=== PATIENT | male | born 1950 | race Caucasian/White ===

== ENCOUNTER 2023-10-04 10:50 | Observation (INO) | payer MEDICARE, BC ==
--- NOTE | 2023-10-04 11:18 | ED ---
General Adult HPI - General Chief complaint: Arrhythmia/Palpitations Stated complaint: Arrhythmia Time Seen by Provider: 10/04/23 11:01 Source: patient, RN notes reviewed, old records reviewed Mode of arrival: ambulatory Limitations: no limitations - History of Present Illness Initial comments: 72-year-old male with an episode of palpitations and near syncope. Patient was driving, felt palpitations followed by the sensation that he may pass out. He states he's had palpitations in the past and has worn a monitor. He has no diagnosis of arrhythmia. He states he has history of coronary artery disease and type 2 diabetes. He denies vomiting or diaphoresis. Denies dehydration. Denies fever. Symptoms are resolved at this time. 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 - Related Data Home Medications Medication Instructions Recorded Confirmed Adalimumab-Atto [Amjevita(Cf) 40 mg SQ Q14D 10/04/23 10/04/23 Autoinjector] Aspirin EC [Ecotrin Low Dose] 81 mg PO DAILY 10/04/23 10/04/23 Atorvastatin [Lipitor] 20 mg PO HS 10/04/23 10/04/23 Clotrimazole/Betameth Cream 1 applic TOPICAL BID PRN 10/04/23 10/04/23 [Lotrisone] Empagliflozin [Jardiance] 25 mg PO DAILY 10/04/23 10/04/23 Famotidine [Pepcid] 20 mg PO BID 10/04/23 10/04/23 Folic Acid 1 mg PO DAILY 10/04/23 10/04/23 Insulin Glargine,Hum.rec.anlog 35 units SQ DAILY 10/04/23 10/04/23 [Lantus Solostar Pen] Isosorbide Mononitrate ER [Imdur] 30 mg PO HS 10/04/23 10/04/23 Metoprolol Succinate (ER) [Toprol 50 mg PO HS 10/04/23 10/04/23 Xl] Sodium Bicarbonate Tab 1,300 mg PO BID 10/04/23 10/04/23 dilTIAZem HCL [dilTIAZem HCL 12Hr 60 mg PO BID 10/04/23 10/04/23 ER] lisinopriL [Prinivil] 20 mg PO HS 10/04/23 10/04/23 metFORMIN HCL ER [Glucophage XR] 100 mg PO BID 10/04/23 10/04/23 predniSONE 10 mg PO DAILY PRN 10/04/23 10/04/23 Allergies Allergy/AdvReac Type Severity Reaction Status Date / Time citalopram AdvReac Unknown Verified 10/04/23 13:36 codeine AdvReac Nausea & Verified 10/04/23 13:36 Vomiting hydrocodone AdvReac Nausea & Verified 10/04/23 13:36 Vomiting oxybutynin AdvReac Unknown Verified 10/04/23 13:36 sulfasalazine AdvReac Nausea & Verified 10/04/23 13:36 Vomiting tamsulosin AdvReac Unknown Verified 10/04/23 13:36 Review of Systems ROS Statement: Those systems with pertinent positive or pertinent negative responses have been documented in the HPI. ROS Other: All systems not noted in ROS Statement are negative. Past Medical History Past Medical History: Diabetes Mellitus, Rheumatoid Arthritis (RA) Additional Past Medical History / Comment(s): Heart Disease, Past Surgical History: Heart Catheterization Additional Past Surgical History / Comment(s): Arthrectomy of Coronary artery in 1994, Past Psychological History: No Psychological Hx Reported Smoking Status: Former smoker Past Alcohol Use History: Occasional Past Drug Use History: None Reported General Exam Limitations: no limitations General appearance: alert, in no apparent distress Head exam: Present: atraumatic, normocephalic Eye exam: Present: normal appearance, PERRL ENT exam: Present: normal exam Neck exam: Present: normal inspection. Absent: tenderness, meningismus Respiratory exam: Present: normal lung sounds bilaterally. Absent: respiratory distress, wheezes Cardiovascular Exam: Present: regular rate, normal rhythm GI/Abdominal exam: Present: soft. Absent: distended, tenderness, guarding Extremities exam: Present: normal inspection, normal capillary refill. Absent: pedal edema, calf tenderness Neurological exam: Present: alert, oriented X3 Psychiatric exam: Present: normal affect, normal mood Skin exam: Present: warm, dry, intact. Absent: cyanosis, diaphoretic Course Vital Signs 10/04/23 10/04/23 10/04/23 10:52 12:00 13:00 Temperature 98.0 F Pulse Rate 77 64 62 Respiratory 18 16 18 Rate Blood Pressure 164/67 135/68 134/64 O2 Sat by Pulse 99 99 99 Oximetry Medical Decision Making - Medical Decision Making Was pt. sent in by a medical professional or institution ([facility], DIRECT[employer]IDATION, urgent care, hospital, or jail...) When possible be specific @ -No Did you speak to anyone other than the patient for history (EMS, parent, family, police, friend...)? What history was obtained from this source @ -No Did you review nursing and triage notes (agree or disagree)? Why? @ -I reviewed and agree with nursing and triage notes Were old charts reviewed (outside hosp., previous admission, EMS record, old EKG, old radiological studies, urgent care reports/EKG's, jail records)? Report findings @ -No old charts were reviewed Differential Diagnosis (chest pain, altered mental status, abdominal pain women, abdominal pain men, vaginal bleeding, weakness, fever, dyspnea, syncope, headache, dizziness, GI bleed, back pain, seizure, CVA, palpatations, mental health, musculoskeletal)? @ -Differential Syncope: Valvular disease, hypertrophic cardiomyopathy, pulmonary embolism, tamponade, tachycardia, bradycardia, MD, hypovolemia, hemorrhage, dissection, anemia, intracranial hemorrhage, seizure, hypoglycemia, carbon monoxide poisoning, this is not meant to be an all-inclusive list. EKG interpreted by me (3pts min.). @ -[Sinus rhythm rate of 67, AR interval 161, QRS duration 88, QTC 398, no ST segment elevation. X-rays interpreted by me (1pt min.). @ -None done CT interpreted by me (1pt min.). @ -None done U/S interpreted by me (1pt. min.). @ -None done What testing was considered but not performed or refused? (CT, X-rays, U/S, labs)? Why? @ -None What meds were considered but not given or refused? Why? @ -None Did you discuss the management of the patient with other professionals (professionals i.e. [facility] Castorena, [employer], lab, RT, psych nurse, social work associate, braiding operator, teacher, principal gifts officer, case coordinator)? Give summary @ EM Was smoking cessation discussed for >3mins.? @ -No Was critical care preformed (if so, how long)? @ -No Were there social determinants of health that impacted care today? How? (Homelessness, low income, unemployed, alcoholism, drug addiction, transportation, low edu. Level, literacy, decrease access to med. care, intermediate, rehab)? @ -No Was there de-escalation of care discussed even if they declined (Discuss DNR or withdrawal of care, Hospice)? DNR status @ -No What co-morbidities impacted this encounter? (DM, HTN, Smoking, COPD, CAD, Cancer, CVA, ARF, Chemo, Hep., AIDS, mental health diagnosis, sleep apnea, morbid obesity)? @ -[Diabetes, coronary artery disease, Was patient admitted / discharged? Hospital course, mention meds given and rou te, prescriptions, significant lab abnormalities, going to OR and other pertinent info. @ -72-year-old male with chief complaint of palpitations and near syncope. Patient is in sinus rhythm. He has mild hyperkalemia 5.7. He is given IV fluid in this level was repeated. His 5.9. His non-hemolyzed. He will be admitted for 24 hours a telemetry, Kayexalate, IV fluids, close monitoring. Troponin is negative 2. Undiagnosed new problem with uncertain prognosis? @ -No Drug Therapy requiring intensive monitoring for toxicity (Heparin, Nitro, Insulin, Cardizem)? @ -No Were any procedures done? @ -No Diagnosis/symptom? @ -[Syncope, hyperkalemia Acute, or Chronic, or Acute on Chronic? @ -default Uncomplicated (without systemic symptoms) or Complicated (systemic symptoms)? @ -default Side effects of treatment? @ -No Exacerbation, Progression, or Severe Exacerbation? @ -No Poses a threat to life or bodily function? How? (Chest pain, USA, MD, pneumonia, PE, COPD, DKA, ARF, appy, cholecystitis, CVA, Diverticulitis, Homicidal, Suicidal, threat to staff... and all critical care pts) @ -[Yes, arrhythmia - Lab Data Result diagrams: 10/04/23 11:13 10/04/23 13:28 Lab Results 10/04/23 10/04/23 10/04/23 Range/Units 11:13 11:13 11:13 WBC 9.5 (3.8-10.6) k/uL RBC 4.99 (4.30-5.90) m/uL Hgb 14.0 (13.0-17.5) gm/dL Hct 43.0 (39.0-53.0) % MCV 86.1 (80.0-100.0) fL MCH 28.1 (25.0-35.0) pg MCHC 32.6 (31.0-37.0) g/dL RDW 13.6 (11.5-15.5) % Plt Count 198 (150-450) k/uL MPV 7.8 Neutrophils % 58 % Lymphocytes % 32 % Monocytes % 6 % Eosinophils % 2 % Basophils % 1 % Neutrophils # 5.5 (1.3-7.7) k/uL Lymphocytes # 3.1 (1.0-4.8) k/uL Monocytes # 0.6 (0-1.0) k/uL Eosinophils # 0.2 (0-0.7) k/uL Basophils # 0.0 (0-0.2) k/uL PT 10.4 (10.0-12.5) sec INR 0.9 (<1.2) APTT 21.7 L (22.0-30.0) sec Sodium 138 (137-145) mmol/L Potassium 5.7 H (3.5-5.1) mmol/L Chloride 107 (98-107) mmol/L Carbon Dioxide 20 L (22-30) mmol/L Anion Gap 11 mmol/L BUN 28 H (9-20) mg/dL Creatinine 1.23 (0.66-1.25) mg/dL Est GFR (CKD-EPI)AfAm 68 (>60 ml/min/1.73 sqM) Est GFR (CKD-EPI)NonAf 59 (>60 ml/min/1.73 sqM) Glucose 118 H (74-99) mg/dL Calcium 9.5 (8.4-10.2) mg/dL Magnesium 2.1 (1.6-2.3) mg/dL Total Bilirubin 0.6 (0.2-1.3) mg/dL AST 41 (17-59) U/L ALT 51 H (4-49) U/L Alkaline Phosphatase 65 (38-126) U/L Troponin I (0.000-0.034) ng/mL Total Protein 7.4 (6.3-8.2) g/dL Albumin 4.2 (3.5-5.0) g/dL 10/04/23 10/04/23 10/04/23 Range/Units 11:13 13:28 13:28 WBC (3.8-10.6) k/uL RBC (4.30-5.90) m/uL Hgb (13.0-17.5) gm/dL Hct (39.0-53.0) % MCV (80.0-100.0) fL MCH (25.0-35.0) pg MCHC (31.0-37.0) g/dL RDW (11.5-15.5) % Plt Count (150-450) k/uL MPV Neutrophils % % Lymphocytes % % Monocytes % % Eosinophils % % Basophils % % Neutrophils # (1.3-7.7) k/uL Lymphocytes # (1.0-4.8) k/uL Monocytes # (0-1.0) k/uL Eosinophils # (0-0.7) k/uL Basophils # (0-0.2) k/uL PT (10.0-12.5) sec INR (<1.2) APTT (22.0-30.0) sec Sodium 137 (137-145) mmol/L Potassium 5.9 H (3.5-5.1) mmol/L Chloride 107 (98-107) mmol/L Carbon Dioxide 21 L (22-30) mmol/L Anion Gap 9 mmol/L BUN 28 H (9-20) mg/dL Creatinine 1.14 (0.66-1.25) mg/dL Est GFR (CKD-EPI)AfAm 75 (>60 ml/min/1.73 sqM) Est GFR (CKD-EPI)NonAf 65 (>60 ml/min/1.73 sqM) Glucose 93 (74-99) mg/dL Calcium 9.0 (8.4-10.2) mg/dL Magnesium (1.6-2.3) mg/dL Total Bilirubin (0.2-1.3) mg/dL AST (17-59) U/L ALT (4-49) U/L Alkaline Phosphatase (38-126) U/L Troponin I <0.012 <0.012 (0.000-0.034) ng/mL Total Protein (6.3-8.2) g/dL Albumin (3.5-5.0) g/dL Disposition Clinical Impression: Near syncope, Hyperkalemia Disposition: ADMITTED IP TO THIS HOSP Condition: Stable Is patient prescribed a controlled substance at d/c from ED?: No Referrals: Na Fan MD [Primary Care Provider] - 1-2 days Time of Disposition: 14:48
--- NOTE | 2023-10-04 11:30 | XR ---
EXAMINATION TYPE: XR chest 2V DATE OF EXAM: 10/04/2023 COMPARISON: None INDICATION: Dysrhythmia TECHNIQUE: Frontal and lateral views of the chest are obtained. FINDINGS: The heart size is normal. The pulmonary vasculature is normal. The lungs are clear. IMPRESSION: 1. No acute pulmonary process.
[2023-10-04 11:38] LABS: Basophils % (A) 1 %; Eosinophils # (A) 0.2 k/uL (0-0.7); Eosinophils % (A) 2 %; Lymphocytes # (A) 3.1 k/uL (1.0-4.8); Lymphocytes % (A) 32 %; MCH 28.1 pg (25.0-35.0); MCHC 32.6 g/dL (31.0-37.0); MCV 86.1 fL (80.0-100.0); Mean Platelet Volume 7.8; Monocytes # (A) 0.6 k/uL (0-1.0); Monocytes % (A) 6 %; Neutrophils # (A) 5.5 k/uL (1.3-7.7); Neutrophils % (A) 58 %; Platelet Count 198 k/uL (150-450); RBC 4.99 m/uL (4.30-5.90); RDW 13.6 % (11.5-15.5); WBC 9.5 k/uL (3.8-10.6)
[2023-10-04 11:43] LABS: ALT 51 U/L (4-49); AST 41 U/L (17-59); African American GFR (CKD) 68 (>60 ml/min/1.73 sqM); Albumin 4.2 g/dL (3.5-5.0); Alkaline Phosphatase 65 U/L (38-126); Anion Gap 11 mmol/L; Blood Urea Nitrogen 28 mg/dL (9-20); Calcium 9.5 mg/dL (8.4-10.2); Carbon Dioxide 20 mmol/L (22-30); Chloride 107 mmol/L (98-107); Glucose 118 mg/dL (74-99); Magnesium 2.1 mg/dL (1.6-2.3); Non-African American GFR(CKD) 59 (>60 ml/min/1.73 sqM); Potassium 5.7 mmol/L (3.5-5.1); Sodium 138 mmol/L (137-145); Total Bilirubin 0.6 mg/dL (0.2-1.3); Total Protein 7.4 g/dL (6.3-8.2)
[2023-10-04 11:52] LABS: INR 0.9 (<1.2); Prothrombin Time 10.4 sec (10.0-12.5)
[2023-10-04 11:56] LABS: Partial Thromboplastin Time 21.7 sec (22.0-30.0)
[2023-10-04] MEDS ORDERED: SODIUM CHLORIDE 0.9% 500 ML 500 ML IV ONE (12:46)
[2023-10-04 13:58] LABS: African American GFR (CKD) 75 (>60 ml/min/1.73 sqM); Anion Gap 9 mmol/L; Blood Urea Nitrogen 28 mg/dL (9-20); Carbon Dioxide 21 mmol/L (22-30); Chloride 107 mmol/L (98-107); Glucose 93 mg/dL (74-99); Non-African American GFR(CKD) 65 (>60 ml/min/1.73 sqM); Potassium 5.9 mmol/L (3.5-5.1); Sodium 137 mmol/L (137-145)
[2023-10-04] MEDS ORDERED: SODIUM POLYSTYRENE SULFONATE 15 GM/60 ML BOTTLE PO STA (14:41)
[2023-10-04] MEDS ORDERED: NALOXONE 0.4 MG/ML 1 ML VIAL IV PRN (14:42)
[2023-10-04] MEDS ORDERED: ACETAMINOPHEN TAB 325 MG TAB PO PRN (14:42)
[2023-10-04] MEDS: SODIUM CHLORIDE 0.9% 1,000 ML IV SCH (15:02)
[2023-10-04] MEDS ORDERED: SODIUM ZIRCONIUM CYCLOSILICATE 10 GM PACKET PO ONE (20:30)
[2023-10-04] MEDS ORDERED: CLOTRIMAZOLE/BETAMETH 1-0.05% CREAM 45 GM TUBE TOPICAL PRN (20:31)
[2023-10-04] MEDS ORDERED: DEXTROSE 50% SYRINGE 50 ML IVP PRN ×2 (20:33)
[2023-10-04] MEDS ORDERED: METOPROLOL SUCCINATE (ER) 50 MG TAB.ER.24H PO SCH (21:00)
[2023-10-04] MEDS ORDERED: ATORVASTATIN 20 MG TAB PO SCH (21:00)
[2023-10-04] MEDS ORDERED: ISOSORBIDE MONONITRATE ER 30 MG TAB.ER.24H PO SCH (21:00)
[2023-10-04 21:04] LABS: Glucose,Whole Blood 97 mg/dL (70-110)
[2023-10-04] MEDS: INSULIN ASPART (NovoLOG) 100 UNIT/ML VIAL SQ SCH (21:21)
[2023-10-04] MEDS: DILTIAZEM ORAL 60 MG TAB PO SCH (21:57)
[2023-10-04] MEDS: FAMOTIDINE 20 MG TAB PO SCH (22:16)
[2023-10-04] MEDS: SODIUM BICARBONATE TAB 650 MG TAB PO SCH (22:16)
[2023-10-05 03:20] VITALS: TEMP 98.3
[2023-10-05 06:23] LABS: Glucose,Whole Blood 91 mg/dL (70-110)
[2023-10-05] MEDS: SODIUM CHLORIDE 0.9% 1,000 ML IV SCH (06:38)
[2023-10-05] MEDS: INSULIN ASPART (NovoLOG) 100 UNIT/ML VIAL SQ SCH ×2 (06:38→12:33)
[2023-10-05] MEDS: FAMOTIDINE 20 MG TAB PO SCH (08:51)
[2023-10-05] MEDS ORDERED: INSULIN DETEMIR (LEVEMIR) 100 UNIT/ML SYR SQ SCH (09:00)
[2023-10-05] MEDS ORDERED: ASPIRIN 81 MG PO SCH (09:00)
[2023-10-05] MEDS ORDERED: DAPAGLIFLOZIN PROPANEDIOL 10 MG TABLET PO SCH (09:00)
[2023-10-05] MEDS ORDERED: FOLIC ACID 1 MG TAB PO SCH (09:00)
--- NOTE | 2023-10-05 10:15 | P.CRDCN ---
History of Present Illness Consult date: 10/05/23 Requesting physician: Anthony Bundy Reason for Consult (text): near syncope, heart palpitations Chief complaint: skipped heart beat, dizziness, near syncope History of present illness: A pleasant 72-year-old gentleman who has a prior history of CAD with prior arthrectomy involving the RCA done at [facility] in [address] Snider. He also has a history of hypertension, hyperlipidemia and diabetes as well as remote history of smoking. According to the patient is most recent cardiac catheterization was in 2019 and showed no obstructive CAD. He does not follow regularly with the cardiologists since moving from [place]. He presented to the emergency department after developing what he described as a skipped heartbeat followed by a sudden dizzy sensation and nearly passing out. He was driving at the time of his episode. EKG on admission showed sinus mechanism with no evidence of ischemia. Chest x-ray showed no acute pulmonary process. He's been monitored on telemetry with no evidence of malignant arrhythmia. Labs showed a normal CBC. Potassium 5.7 and subsequent potassium 5.9, BUN 28 with a creatinine of 1.263 and subsequent of 1.14. Cardiac enzymes have been negative 2. Vital signs have been stable with blood pressure being somewhat on the high side. Current medications at home include folic acid, Pepcid, low-dose aspirin, metformin, sodium bicarbonate, lisinopril 20 mg by mouth daily, isosorbide 30 mg by mouth daily, Lantus, atorvastatin 20 mg by mouth daily, Amjevita, metoprolol succinate 50 mg by mouth daily, Jardiance 5 mg by mouth daily, diltiazem 60 mg by mouth twice a day, and prednisone. He's had no episodes of chest discomfort. Denies any shortness of breath, orthopnea or PND. He has no lower extremity edema. He does not typically have episodes of dizziness. He's been having palpitations for many years without any malignant arrhythmia noted on previous Holter monitors. Past Medical History Past Medical History: Diabetes Mellitus, Rheumatoid Arthritis (RA) Additional Past Medical History / Comment(s): Heart Disease, History of Any Multi-Drug Resistant Organisms: None Reported Past Surgical History: Heart Catheterization Additional Past Surgical History / Comment(s): Arthrectomy of Coronary artery in 1994, Past Anesthesia/Blood Transfusion Reactions: No Reported Reaction Past Psychological History: No Psychological Hx Reported Smoking Status: Former smoker Past Alcohol Use History: Occasional Past Drug Use History: None Reported Medications and Allergies Home Medications Medication Instructions Recorded Confirmed Type Adalimumab-Atto [Amjevita(Cf) 40 mg SQ Q14D 10/04/23 10/04/23 History Autoinjector] Aspirin EC [Ecotrin Low Dose] 81 mg PO DAILY 10/04/23 10/04/23 History Atorvastatin [Lipitor] 20 mg PO HS 10/04/23 10/04/23 History Clotrimazole/Betameth Cream 1 applic TOPICAL BID PRN 10/04/23 10/04/23 History [Lotrisone] Empagliflozin [Jardiance] 25 mg PO DAILY 10/04/23 10/04/23 History Famotidine [Pepcid] 20 mg PO BID 10/04/23 10/04/23 History Folic Acid 1 mg PO DAILY 10/04/23 10/04/23 History Insulin Glargine,Hum.rec.anlog 35 units SQ DAILY 10/04/23 10/04/23 History [Lantus Solostar Pen] Isosorbide Mononitrate ER [Imdur] 30 mg PO HS 10/04/23 10/04/23 History Metoprolol Succinate (ER) [Toprol 50 mg PO HS 10/04/23 10/04/23 History Xl] Sodium Bicarbonate Tab 1,300 mg PO BID 10/04/23 10/04/23 History dilTIAZem HCL [dilTIAZem HCL 12Hr 60 mg PO BID 10/04/23 10/04/23 History ER] lisinopriL [Prinivil] 20 mg PO HS 10/04/23 10/04/23 History metFORMIN HCL ER [Glucophage XR] 100 mg PO BID 10/04/23 10/04/23 History predniSONE 10 mg PO DAILY PRN 10/04/23 10/04/23 History Allergies Allergy/AdvReac Type Severity Reaction Status Date / Time citalopram AdvReac Unknown Verified 10/04/23 13:36 codeine AdvReac Nausea & Verified 10/04/23 13:36 Vomiting hydrocodone AdvReac Nausea & Verified 10/04/23 13:36 Vomiting oxybutynin AdvReac Unknown Verified 10/04/23 13:36 sulfasalazine AdvReac Nausea & Verified 10/04/23 13:36 Vomiting tamsulosin AdvReac Unknown Verified 10/04/23 13:36 Physical Exam Vitals: Vital Signs Temp Pulse Pulse Resp BP BP Pulse Ox 10/05/23 07:00 98.3 F 59 L 12 147/67 98 10/05/23 02:37 98.3 F 61 16 147/68 98 10/04/23 21:59 72 10/04/23 20:56 98.4 F 72 16 170/64 98 10/04/23 20:21 73 19 134/65 10/04/23 15:00 97.4 F L 60 16 132/65 100 10/04/23 13:00 62 18 134/64 99 10/04/23 12:00 64 16 135/68 99 10/04/23 10:52 98.0 F 77 18 164/67 99 Intake and Output 10/04/23 10/05/23 10/05/23 22:59 06:59 14:59 Other: Voiding Method Toilet # Voids 1 2 Weight 68.039 kg PHYSICAL EXAMINATION: This is a 72-year-old gentleman in no apparent distress at the time of my examination. VITAL SIGNS: Reviewed HEENT: Head is atraumatic, normocephalic. Pupils are equal, round. Sclerae anicteric. Conjunctivae are clear. Mucous membranes of the mouth are moist. Neck is supple. There is no elevated jugular venous pressure. No carotid bruit is heard. CHEST EXAMINATION: Clear to auscultation bilaterally. No wheezes rales or rhonchi. Respirations even and nonlabored. HEART EXAMINATION: Heart regular, positive S1 and S2. No S3. No S4. No clicks, rubs or murmurs. ABDOMEN: Soft, nontender. Bowel sounds are heard. No organomegaly noted. EXTREMITIES: 2+ peripheral pulses with no evidence of peripheral edema and no calf tenderness noted. NEUROLOGIC EXAMINATION: Patient is awake, alert and oriented x3. Results 10/04/23 11:13 10/04/23 13:28 Cardiac Enzymes 10/04/23 10/04/23 10/04/23 Range/Units 11:13 11: 13:28 AST 41 (17-59) U/L Troponin I <0.012 <0.012 (0.000-0.034) ng/mL Coagulation 10/04/23 Range/Units 11:13 PT 10.4 (10.0-12.5) sec APTT 21.7 L (22.0-30.0) sec CBC 10/04/23 Range/Units 11:13 WBC 9.5 (3.8-10.6) k/uL RBC 4.99 (4.30-5.90) m/uL Hgb 14.0 (13.0-17.5) gm/dL Hct 43.0 (39.0-53.0) % Plt Count 198 (150-450) k/uL Comprehensive Metabolic Panel 10/04/23 10/04/23 Range/Units 11:13 13:28 Sodium 138 137 (137-145) mmol/L Potassium 5.7 H 5.9 H (3.5-5.1) mmol/L Chloride 107 107 (98-107) mmol/L Carbon Dioxide 20 L 21 L (22-30) mmol/L BUN 28 H 28 H (9-20) mg/dL Creatinine 1.23 1.14 (0.66-1.25) mg/dL Glucose 118 H 93 (74-99) mg/dL Calcium 9.5 9.0 (8.4-10.2) mg/dL AST 41 (17-59) U/L ALT 51 H (4-49) U/L Alkaline Phosphatase 65 (38-126) U/L Total Protein 7.4 (6.3-8.2) g/dL Albumin 4.2 (3.5-5.0) g/dL Current Medications Generic Name Dose Route Start Last Admin Trade Name Freq PRN Reason Stop Dose Admin Acetaminophen 650 mg 10/04/23 14:42 Acetaminophen Tab 325 Mg Tab PO Q6HR PRN Mild Pain or Fever > 100.5 Aspirin 81 mg 10/05/23 09:00 10/05/23 08:51 Aspirin 81 Mg PO 81 mg DAILY JOHANNY Administration Atorvastatin Calcium 20 mg 10/04/23 21:00 10/04/23 21:59 Atorvastatin 20 Mg Tab PO 20 mg HS JOHANNY Administration Betamethasone/Clotrimazole 1 applic 10/04/23 20:31 Clotrimazole/Betameth 1-0.05% Cream 45 Gm Tube TOPICAL BID PRN irritation Protocol Dapagliflozin 10 mg 10/05/23 09:00 10/05/23 08:51 Dapagliflozin Propanediol 10 Mg Tablet PO 10 mg DAILY JOHANNY Administration Dextrose/Water 25 ml 10/04/23 20:33 Dextrose 50% Syringe 50 Ml IVP PER PROTOCOL PRN Hypoglycemia Protocol Dextrose/Water 50 ml 10/04/23 20:33 Dextrose 50% Syringe 50 Ml IVP PER PROTOCOL PRN Hypoglycemia Protocol Diltiazem HCl 60 mg 10/04/23 21:00 10/04/23 21:57 Diltiazem Oral 60 Mg Tab PO Not Given BID JOHANNY Famotidine 20 mg 10/04/23 21:00 10/05/23 08:51 Famotidine 20 Mg Tab PO 20 mg BID JOHANNY Administration Folic Acid 1 mg 10/05/23 09:00 10/05/23 08:51 Folic Acid 1 Mg Tab PO 1 mg DAILY JOHANNY Administration Sodium Chloride 1,000 mls @ 75 mls/hr 10/04/23 14:45 10/05/23 06:38 Saline 0.9% IV Not Given .[id number] [facility] Insulin Aspart 0 unit 10/04/23 21:00 10/05/23 06:38 Insulin Aspart (Novolog) 100 Unit/Ml Vial SQ Not Given ACHS JOHANNY Protocol Insulin Detemir 35 unit 10/05/23 09:00 10/05/23 08:51 Insulin Detemir (Levemir) 100 Unit/Ml Syr SQ 35 unit DAILY JOHANNY Administration Isosorbide Mononitrate 30 mg 10/04/23 21:00 10/04/23 22:16 Isosorbide Mononitrate Er 30 Mg Tab.Er.24h PO Not Given HS JOHANNY Metoprolol Succinate 50 mg 10/04/23 21:00 10/04/23 21:59 Metoprolol Succinate (Er) 50 Mg Tab.Er.24h PO 50 mg HS [facility] Administration Naloxone HCl 0.2 mg 10/04/23 14:42 Naloxone 0.4 Mg/Ml 1 Ml Vial IV Q2M PRN Opioid Reversal Sodium Bicarbonate 1,300 mg 10/04/23 21:00 10/04/23 22:16 Sodium Bicarbonate Tab 650 Mg Tab PO Not Given BID JOHANNY Intake and Output 10/04/23 10/05/23 10/05/23 22:59 06:59 14:59 Other: Voiding Method Toilet # Voids 1 2 Weight 68.039 kg 10/04/23 11:13 11/06/23 13:28 EKG Interpretations (text) Normal sinus rhythm Assessment and Plan Assessment: #1 symptoms of near syncope #2 CAD with prior arthrectomy #3 hypertension #4 hyperlipidemia #5 palpitations, recurrent #6 diabetes mellitus type 2 Plan: From cardiology perspective will obtain a 2-D echo with Doppler study to assess cardiac structure and function. We will obtain a stress echocardiogram to rule out exercise-induced arrhythmia as well as underlying ischemia. Continue to monitor on telemetry. Depending on the test results further recommendations will be made. Patient will likely benefit from an outpatient 30 day event monitor which will be scheduled through our office. May discuss possible loop implantation in the future if need be. MYSQL DBA note has been reviewed, I agree with a documented findings and plan of care. Patient was seen and examined.
[2023-10-05 11:31] LABS: BUN/Creat Ratio 20.17 Ratio (12.00-20.00); Blood Urea Nitrogen 24.2 mg/dL (9.0-27.0); Carbon Dioxide 20.9 mmol/L (21.6-31.8); Chloride 109 mmol/L (96-109); Glucose 82 mg/dL (70-110); Potassium 4.1 mmol/L (3.5-5.5); Sodium 141 mmol/L (135-145)
[2023-10-05 12:17] LABS: Glucose,Whole Blood 79 mg/dL (70-110)
--- NOTE | 2023-10-05 12:37 | CA ---
Stress Echo Report Stephen Odom Age: 72 Gender: M : 1950 Exam Date: 10/05/2023 11:32 Exam Location: [facility] Ht (in): 65 Wt (lb): 150 Ordering Physician: Rosa Moses Referring Physician: [id number] Ethernet Network Architect: Lauren Denise RDCS Technologist Procedure CPT: Indication: near syncope, h/o CAD ICD-9 Codes: Rhythm: Patient History: PALPITATIONS, ANGINA, HTN, ELEVATED CHOLESTEROL LEVELS, PRIOR SMOKER, PRIOR CARDIAC CATH Cardiac Medications: Medications in past 24 hours: Contrast: Stress Results Protocol: Tod Total dose(mL): Exercise Duration (min:sec): 8:[address] Depression (mm): Angina Score: Orr Score: METS: 9.7 Resting HR: 86 Resting BP: 141 / 44 Peak HR: 137 Peak BP: 220 / 37 Max Predicted HR: 149 92 % Max Predicted HR Target HR: 127 Double Product: [id number] Stress Summary: The patient's target heart rate was achieved The hemodynamic response to exercise was normal BP Response: Reason for Termination: MAX EXERTION/TARGET HR Cardiac Symptoms: NO SYMPTOMS ECG Analysis Resting ECG: Normal sinus rhythm, normal ECG Stress ECG: Borderline ST depression - inferio-lateral leads Arrhythmia: None Echo Analysis Resting Echo: Normal resting echocardiogram. Peak Echo Analysis: Normal wall thickening and motion MEASUREMENTS (Male/Female) Normal Values CONCLUSIONS 1. Good exercise tolerance with borderline positive electrocardiographic stress testing 2. Normal stress echocardiogram with no evidence of stress induced ischemia. Dr. Bruna Alanis MD (Electronically Signed) Final Date: 05 October 2023 12:36
--- NOTE | 2023-10-05 12:39 | CA ---
Transthoracic Echo Report Name: Stephen Odom Age: 72 Gender: M : 1950 Exam Date: 10/05/2023 11:51 Exam Location: [facility] Ht (in): 65 Wt (lb): 150 Ordering Physician: Rosa Moses Attending/Referring Phys: [id number], Aurelia Spot Worker Lauren Denise, LANA Procedure CPT: Indications: near syncope Cardiac Hx: Technical Quality: Good Contrast 1: Total Dose (mL): Contrast 2: Total Dose (mL): MEASUREMENTS (Male / Female) Normal Values 2D ECHO LV Diastolic Diameter PLAX 4.1 cm 4.2 - 5.9 / 3.9 - 5.3 cm LV Systolic Diameter PLAX 2.5 cm IVS Diastolic Thickness 1.0 cm 0.6 - 1.0 / 0.6 - 0.9 cm LVPW Diastolic Thickness 1.0 cm 0.6 - 1.0 / 0.6 - 0.9 cm LV Relative Wall Thickness 0.5 RV Internal Dim ED PLAX 3.6 cm LA Systolic Diameter LX 3.7 cm 3.0 - 4.0 / 2.7 - 3.8 cm LV Diastolic Volume MOD 4C 73.9 cm??? LV Systolic Volume MOD 4C 16.2 cm??? LV Ejection Fraction MOD 4C 78.1 % LV Cardiac Index MOD 4C 2856.9 cm???/min???m??? LV Diastolic Length 4C 8.8 cm LV Systolic Length 4C 6.5 cm LV Diastolic Volume MOD 2C 64.2 cm??? LV Systolic Volume MOD 2C 16.0 cm??? LV Ejection Fraction MOD 2C 75.0 % LV Cardiac Index MOD 2C 2384.8 cm???/min???m??? LV Diastolic Length 2C 7.8 cm LV Systolic Length 2C 6.1 cm LA Volume 47.8 cm??? 18 - 58 / 22 - 52 cm??? LA Volume Index 26.9 cm???/m??? 16 - 28 cm???/m??? M-MODE Aortic Root Diameter MM 3.2 cm MV E Point Septal Separation 0.3 cm AV Cusp Separation MM 2.0 cm DOPPLER AV Peak Velocity 142.2 cm/s AV Peak Gradient 8.1 mmHg MV Area PHT 3.4 cm??? Mitral E Point Velocity 107.9 cm/s Mitral A Point Velocity 104.1 cm/s Mitral E to A Ratio 1.0 MV Deceleration Time 224.0 ms MV E' Velocity 7.4 cm/s Mitral E to MV E' Ratio 14.6 TR Peak Velocity 271.6 cm/s TR Peak Gradient 29.5 mmHg Right Ventricular Systolic Press 34.5 mmHg FINDINGS Left Ventricle Left ventricular ejection fraction is estimated at 60-65 %. Left ventricular cavity size normal. Left ventricular wall thickness normal.normal left ventricular wall motion. Normal left ventricular diastolic filling pattern. Right Ventricle Mild right ventricular dilatation. No pulmonary hypertension. Right Atrium Normal right atrial size. Left Atrium Normal left atrial size. Mitral Valve Structurally normal mitral valve. No mitral stenosis, or prolapse. Trace to mild mitral regurgitation. Aortic Valve Trileaflet aortic valve. No aortic valve stenosis or regurgitation. Tricuspid Valve Structurally normal tricuspid valve. Mild tricuspid regurgitation. Pulmonic Valve Structurally normal pulmonic valve. Trace pulmonic regurgitation. Pericardium No pericardial effusion. Aorta Normal size aortic root and proximal ascending aorta. CONCLUSIONS 1. Normal left ventricular size and systolic function 2. Mild tricuspid with trace to mild mitral regurgitation. Previewed by: Dr. Bruna Alanis MD (Electronically Signed) Final Date: 05 October 2023 12:39
[2023-10-05] MEDS: DILTIAZEM ORAL 60 MG TAB PO SCH (13:47)
[2023-10-05] MEDS: SODIUM BICARBONATE TAB 650 MG TAB PO SCH (13:48)
[2023-10-05 14:24] VITALS: BP 143/55; PULSE 71; RESP 14
--- NOTE | 2023-10-05 22:11 | P.HPIM ---
History of Present Illness H&P Date: 10/05/23 Chief Complaint: Nearly passed out This is a pleasant 72-year-old patient follows with Dr. Na Fan. Patient's previously at the intervention of the RCA with atherectomy with no stent in 1994. In 2019 repeat cardiac catheterization showed mild disease. Patient's had palpitations off and on. Has had previous Holter monitors 3 for several years with no other findings. Patient does have some in a year problems. Also patient has GERD, osteoarthritis, BPH, hypertension, hyperlipidemia. 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 He felt he is going to pass out so therefore pulled over. Decided to come to the ER. The ER symptoms are completely resolved. He had had this morning meals. No chest pain Review of systems: GEN.: None EYES: None HEENT: None NECK: None RESPIRATORY: None CARDIOVASCULAR: As above GASTROINTESTINAL: None GENITOURINARY: None MUSCULOSKELETAL: Arthritis LYMPHATICS: None HEMATOLOGICAL: None PSYCHIATRY: None NEUROLOGICAL: None Past medical history to include: GERD, osteoarthritis, BPH, CAD, hypertension, hyperlipidemia Social history: Patient smoked a pack a day for about 33 years. Stopped 23 years ago. 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 Physical examination: VITAL SIGNS: 98.3, 59, 12, 1 47 x 67, 98% room air GENERAL: BMI 25, declining bed awake comfortable. EYES: Pupils equal. Conjunctiva normal. HEENT: External appearance of nose and ears normal, oral cavity grossly normal. NECK: JVD not raised; masses not palpable. HEART: First and second heart sounds are normal; no edema. LUNGS: Respiratory rate normal; clear to auscultation. ABDOMEN: Soft, nontender, liver spleen not palpable, no masses palpable. PSYCH: Alert and oriented x3; mood and affect normal. MUSCULOSKELETAL:No Clubbing/cyanosis;muscles-grossly intact NEUROLOGICAL: Cranial nerves grossly intact; no facial asymmetry, power and sensation grossly intact. LYMPHATICS: No lymph nodes palpable in the axilla and neck INVESTIGATIONS, reviewed in the clinical context: White count 5.5 hemoglobin 14 platelets 198 sodium 141 potassium 4.1 creatinine 1.2 Troponin I less than 0.0122 EKG tracing personally reviewed by me-normal sinus rhythm Chest x-ray film personally reviewed by me-hyperinflation Assessment plan: -Short episode of palpitation followed by episode of nearly passing out. Patient is at all Holter monitor 3 in the past. Patient will need outpatient event monitor. Rule out underlying cardiac ischemia. -Coronary artery disease with history of atherectomy 1994. Aspirin. Toprol-XL. -GERD Pepcid 20 mg twice a day -Diabetes mellitus type 2 on oral hypoglycemic Metformin thousand milligrams twice a day Lantus 35 units. jardiance -Essential hypertension Cardizem ER. Toprol-XL. Seen by cardiology. Stress echocardiogram ordered. Discussed with patient. Will probably need an event monitor for outpatient. Past Medical History Past Medical History: Diabetes Mellitus, Rheumatoid Arthritis (RA) Additional Past Medical History / Comment(s): Heart Disease, History of Any Multi-Drug Resistant Organisms: None Reported Past Surgical History: Heart Catheterization Additional Past Surgical History / Comment(s): Arthrectomy of Coronary artery in 1994, Past Anesthesia/Blood Transfusion Reactions: No Reported Reaction Past Psychological History: No Psychological Hx Reported Smoking Status: Former smoker Past Alcohol Use History: Occasional Past Drug Use History: None Reported Medications and Allergies Home Medications Medication Instructions Recorded Confirmed Type Adalimumab-Atto [Amjevita(Cf) 40 mg SQ Q14D 10/04/23 10/04/23 History Autoinjector] Aspirin EC [Ecotrin Low Dose] 81 mg PO DAILY 10/04/23 10/04/23 History Atorvastatin [Lipitor] 20 mg PO HS 10/04/23 10/04/23 History Clotrimazole/Betameth Cream 1 applic TOPICAL BID PRN 10/04/23 10/04/23 History [Lotrisone] Empagliflozin [Jardiance] 25 mg PO DAILY 10/04/23 10/04/23 History Famotidine [Pepcid] 20 mg PO BID 10/04/23 10/04/23 History Folic Acid 1 mg PO DAILY 10/04/23 10/04/23 History Insulin Glargine,Hum.rec.anlog 35 units SQ DAILY 10/04/23 10/04/23 History [Lantus Solostar Pen] Isosorbide Mononitrate ER [Imdur] 30 mg PO HS 10/04/23 10/04/23 History Metoprolol Succinate (ER) [Toprol 50 mg PO HS 10/04/23 10/04/23 History XL] Sodium Bicarbonate Tab 1,300 mg PO BID 10/04/23 10/04/23 History dilTIAZem HCL [dilTIAZem HCL 12Hr 60 mg PO BID 10/04/23 10/04/23 History ER] lisinopriL [Prinivil] 20 mg PO HS 10/04/23 10/04/23 History metFORMIN HCL ER [Glucophage XR] 100 mg PO BID 10/04/23 10/04/23 History predniSONE 10 mg PO DAILY PRN 10/04/23 10/04/23 History Allergies Allergy/AdvReac Type Severity Reaction Status Date / Time citalopram AdvReac Unknown Verified 10/04/23 13:36 codeine AdvReac Nausea & Verified 10/04/23 13:36 Vomiting hydrocodone AdvReac Nausea & Verified 10/04/23 13:36 Vomiting oxybutynin AdvReac Unknown Verified 10/04/23 13:36 sulfasalazine AdvReac Nausea & Verified 10/04/23 13:36 Vomiting tamsulosin AdvReac Unknown Verified 10/04/23 13:36 Physical Exam Vitals: Vital Signs Temp Pulse Pulse Resp BP BP Pulse Ox 10/05/23 07:00 98.3 F 59 L 12 147/67 98 10/05/23 02:37 98.3 F 61 16 147/68 98 10/04/23 21:59 72 10/04/23 20:56 98.4 F 72 16 170/64 98 10/04/23 20:21 73 19 134/65 10/04/23 15:00 97.4 F L 60 16 132/65 100 10/04/23 13:00 62 18 134/64 99 10/04/23 12:00 64 16 135/68 99 10/04/23 10:52 98.0 F 77 18 164/67 99 Intake and Output 10/04/23 10/05/23 10/05/23 22:59 06:59 14:59 Other: Voiding Method Toilet # Voids 1 2 Weight 68.039 kg Results CBC & Chem 7: 10/04/23 11:13 10/05/23 06:24 Labs: Abnormal Lab Results - Last 24 Hours (Table) 10/04/23 10/04/23 10/04/23 Range/Units 11:13 11:13 13:28 APTT 21.7 L (22.0-30.0) sec Potassium 5.7 H 5.9 H (3.5-5.1) mmol/L Carbon Dioxide 20 L 21 L (22-30) mmol/L BUN 28 H 28 H (9-20) mg/dL Glucose 118 H (74-99) mg/dL ALT 51 H (4-49) U/L Thrombosis Risk Factor Assmnt - Choose All That Apply Any of the Below Risk Factors Present?: No Other Risk Factors: Yes Each Risk Factor Represents 2 Points: Age 61-74 years Other congenital or acquired thrombophilia - If yes, enter type in comment: No Thrombosis Risk Factor Assessment Total Risk Factor Score: 2 Thrombosis Risk Factor Assessment Level: Low Risk
--- NOTE | 2023-10-05 22:14 | P.DS ---
Providers Date of admission: 10/04/23 14:42 Expected date of discharge: 10/05/23 Attending physician: Kalen Dukes Consults: 10/05/23 00:08 Consult Physician Routine Consulting Provider: Pietro French Consult Reason/Comments: near syncope, heart palpitations Do you want consulting provider notified?: Yes Primary care physician: Na Fan [facility] Course: Chief Complaint: Nearly passed out This is a pleasant 72-year-old patient follows with Dr. Na Fan. Patient's previously at the intervention of the RCA with atherectomy with no stent in 1994. In 2019 repeat cardiac catheterization showed mild disease. Patient's had palpitations off and on. Has had previous Holter monitors 3 for several years with no other findings. Patient does have some in a year problems. Also patient has GERD, osteoarthritis, BPH, hypertension, hyperlipidemia. 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 He felt he is going to pass out so therefore pulled over. Decided to come to the ER. The ER symptoms are completely resolved. He had had this morning meals. No chest pain Patient's stress echocardiogram was negative. Outpatient event monitor. Patient follow-up with Dr. Alanis. BMP in 5 days. Past medical history to include: GERD, osteoarthritis, BPH, CAD, hypertension, hyperlipidemia Social history: Patient smoked a pack a day for about 33 years. Stopped 23 years ago. 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 Physical examination: VITAL SIGNS: 98.3, 59, 12, 1 47 x 67, 98% room air GENERAL: BMI 25, declining bed awake comfortable. EYES: Pupils equal. Conjunctiva normal. HEENT: External appearance of nose and ears normal, oral cavity grossly normal. NECK: JVD not raised; masses not palpable. HEART: First and second heart sounds are normal; no edema. LUNGS: Respiratory rate normal; clear to auscultation. ABDOMEN: Soft, nontender, liver spleen not palpable, no masses palpable. PSYCH: Alert and oriented x3; mood and affect normal. MUSCULOSKELETAL:No Clubbing/cyanosis;muscles-grossly intact NEUROLOGICAL: Cranial nerves grossly intact; no facial asymmetry, power and sensation grossly intact. LYMPHATICS: No lymph nodes palpable in the axilla and neck INVESTIGATIONS, reviewed in the clinical context: Stress echocardiogram: Negative White count 5.5 hemoglobin 14 platelets 198 sodium 141 potassium 4.1 creatinine 1.2 Troponin I less than 0.0122 EKG tracing personally reviewed by me-normal sinus rhythm Chest x-ray film personally reviewed by me-hyperinflation Assessment plan: -Short episode of palpitation followed by episode of nearly passing out. Patient is at all Holter monitor 3 in the past. Patient will need outpatient event monitor. Stress echocardiogram: Negative Follow-up with Dr. Alanis outpatient -Coronary artery disease with history of atherectomy 1994. Aspirin. Toprol-XL. 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 And follow-up with nephrology if needed -GERD Pepcid 20 mg twice a day -Diabetes mellitus type 2 on oral hypoglycemic Metformin thousand milligrams twice a day Lantus 35 units. jardiance -Essential hypertension Cardizem ER. Toprol-XL. Disposition: Home Labs: BMP-5 days Plan - Discharge Summary Discharge Rx Participant: No New Discharge Prescriptions: Continue Folic Acid 1 mg PO DAILY Aspirin EC [Ecotrin Low Dose] 81 mg PO DAILY Atorvastatin [Lipitor] 20 mg PO HS Metoprolol Succinate (ER) [Toprol XL] 50 mg PO HS Empagliflozin [Jardiance] 25 mg PO DAILY dilTIAZem HCL [dilTIAZem HCL 12Hr ER] 60 mg PO BID Famotidine [Pepcid] 20 mg PO BID metFORMIN HCL ER [Glucophage XR] 100 mg PO BID Sodium Bicarbonate Tab 1,300 mg PO BID lisinopriL [Prinivil] 20 mg PO HS Isosorbide Mononitrate ER [Imdur] 30 mg PO HS Insulin Glargine,Hum.rec.anlog [Lantus Solostar Pen] 35 units SQ DAILY Adalimumab-Atto [Amjevita(Cf) Autoinjector] 40 mg SQ Q14D predniSONE 10 mg PO DAILY PRN PRN Reason: RA flare up Clotrimazole/Betameth Cream [Lotrisone] 1 applic TOPICAL BID PRN PRN Reason: irritation Discharge Medication List Adalimumab-Atto [Amjevita(Cf) Autoinjector] 40 mg SQ Q14D 10/04/23 [History] Aspirin EC [Ecotrin Low Dose] 81 mg PO DAILY 10/04/23 [History] Atorvastatin [Lipitor] 20 mg PO HS 10/04/23 [History] Clotrimazole/Betameth Cream [Lotrisone] 1 applic TOPICAL BID PRN 10/04/23 [History] Empagliflozin [Jardiance] 25 mg PO DAILY 10/04/23 [History] Famotidine [Pepcid] 20 mg PO BID 10/04/23 [History] Folic Acid 1 mg PO DAILY 10/04/23 [History] Insulin Glargine,Hum.rec.anlog [Lantus Solostar Pen] 35 units SQ DAILY 10/04/23 [History] Isosorbide Mononitrate ER [Imdur] 30 mg PO HS 10/04/23 [History] Metoprolol Succinate (ER) [Toprol XL] 50 mg PO HS 10/04/23 [History] Sodium Bicarbonate Tab 1,300 mg PO BID 10/04/23 [History] dilTIAZem HCL [dilTIAZem HCL 12Hr ER] 60 mg PO BID 10/04/23 [History] lisinopriL [Prinivil] 20 mg PO HS 10/04/23 [History] metFORMIN HCL ER [Glucophage XR] 100 mg PO BID 10/04/23 [History] predniSONE 10 mg PO DAILY PRN 10/04/23 [History] Follow up Appointment(s)/Referral(s): Bruna Alanis MD [STAFF PHYSICIAN] - 2 Weeks (Please stop by [facility] after discharge to get an event monitor) Na Fan MD [Primary Care Provider] - 1-2 days Patient Instructions/Handouts: Hyperkalemia (DC), Near Syncope (DC) Activity/Diet/Wound Care/Special Instructions: event monitor Discharge Disposition: HOME SELF-CARE
== END 2023-10-05 14:55 | disposition home or self-care (01) ==
LOC: EC 10:50 → 6NMEDSUR 14:42
PROVIDERS: ADMIT Hospitalist; ATTEND Hospitalist
DX: R55 Syncope and collapse (principal); E87.5 Hyperkalemia; E11.9 Type 2 diabetes mellitus without complications; I25.10 Atherosclerotic heart disease of native coronary artery without angina pectoris; M06.9 Rheumatoid arthritis, unspecified; I10 Essential (primary) hypertension; E78.5 Hyperlipidemia, unspecified; N40.0 Benign prostatic hyperplasia without lower urinary tract symptoms; K21.9 Gastro-esophageal reflux disease without esophagitis; M19.90 Unspecified osteoarthritis, unspecified site; Z79.82 Long term (current) use of aspirin; Z79.84 Long term (current) use of oral hypoglycemic drugs; Z79.4 Long term (current) use of insulin; Z79.620 Long term (current) use of immunosuppressive biologic; Z79.899 Other long term (current) drug therapy; Z88.6 Allergy status to analgesic agent; Z88.5 Allergy status to narcotic agent; Z88.2 Allergy status to sulfonamides; Z88.8 Allergy status to other drugs, medicaments and biological substances; Z90.5 Acquired absence of kidney; Z98.61 Coronary angioplasty status; Z87.891 Personal history of nicotine dependence; Z98.890 Other specified postprocedural states
CPT/HCPCS: 96361 ×3; 96360; 99285; 36415; 93005; 93306; 93351; 80053; 80048 ×2; 83735; 84484; 85025; 85610; 85730; 83036; 71046; G0378 ×2

== ENCOUNTER → 2024-02-05 | Outpatient (CLI) | payer BC ==
[2024-02-05 13:11] LABS: BUN/Creat Ratio 19.82 Ratio (12.00-20.00); Blood Urea Nitrogen 21.8 mg/dL (9.0-27.0); Calcium 9.8 mg/dL (8.7-10.3); Carbon Dioxide 25.5 mmol/L (21.6-31.8); Chloride 104 mmol/L (96-109); Glucose 81 mg/dL (70-110); Potassium 5.1 mmol/L (3.5-5.5); Sodium 139 mmol/L (135-145)
== END | disposition home or self-care (01) ==
LOC: LABWHC1 08:40
DX: E87.5 Hyperkalemia (principal); N18.9 Chronic kidney disease, unspecified
CPT/HCPCS: 36415; 80048